=== PATIENT | female | born 1985 | race Caucasian/White ===

== ENCOUNTER 2016-12-24 11:58 | Emergency (ER) | payer MEDICARE ==
[~2016-12-24] VITALS: Ht 165.1 cm; Wt 48.3 kg
[2016-12-24 12:16] VITALS: BP 150/81
--- NOTE | 2016-12-24 12:31 | NUR ---
Patient ambulated to bed 04.
--- NOTE | 2016-12-24 13:05 | NUR ---
PATIENT PRESENTS TO ED C/O PAIN TO LEFT SIDE OF HEAD, NOTED ABSCESS LEFT SIDE OF SCALP X 5 DAYS. LEFT EYE SWELLING X3 DAYS, DENIES INJURY. MEDICAL HX: DM. DENIES N/V/D; SKIN IS PINK/WARM/DRY; AAOX4 WITH EVEN AND STEADY GAIT; LUNGS CLEAR BL; HR EVEN AND REGULAR; PT DENIES ANY FEVER, CP, SOB, OR COUGH AT THIS TIME; PATIENT STATES PAIN OF 7/10 AT THIS TIME; VSS; PATIENT POSITIONED FOR COMFORT; HOB ELEVATED; BEDRAILS UP X2; BED DOWN. ER MD MADE AWARE OF PT STATUS.
--- NOTE | 2016-12-24 13:59 | NUR ---
Dr. Shelby evaluating patient at bedside.
[2016-12-24 14:28] VITALS: BP 145/72
--- NOTE | 2016-12-24 14:28 | NUR ---
Patient discharged with v/s stable. Written and verbal after care instructions given and explained. Patient alert, oriented and verbalized understanding of instructions. Ambulatory with steady gait. All questions addressed prior to discharge. ID band removed. Patient advised to follow up with PMD. Rx of KEFLEX. METFORMIN given. Patient educated on indication of medication including possible reaction and side effects. Opportunity to ask questions provided and answered.
== END 2016-12-24 14:28 | disposition home or self-care (01) ==
LOC: MED 11:58
DX: L02.811 Cutaneous abscess of head [any part, except face] (principal); L03.213 Periorbital cellulitis; E11.9 Type 2 diabetes mellitus without complications
CPT/HCPCS: 81025; 82948; 99283

== ENCOUNTER 2021-07-19 11:56 | Emergency (ER) | payer BC, MEDICARE ==
[~2021-07-19] VITALS: Ht 165.1 cm; Wt 50.8 kg
[2021-07-19 12:08] VITALS: BP 129/60
--- NOTE | 2021-07-19 12:19 | NUR ---
Patient ambulated to bed 9.
--- NOTE | 2021-07-19 12:30 | NUR ---
35 y/o Female BIB for c/o right eye pain after having fake eyelashes placed and now since removed. Denies chanegs in vision/TRAORE. Pt denies any trauma in eye. AOX4, able to make needs known. BANG Posadas aware of POC glucose level. PmHx: DM, HLD Allergies: Denies Home meds: Has DM meds, but is not taking them.
--- NOTE | 2021-07-19 12:33 | NUR ---
Dr. Posadas at bedside to exam patient.
[2021-07-19] MEDS ORDERED: FLUORESCEIN OPTH STRIP 1 MG ONE (12:44)
[2021-07-19] MEDS ORDERED: FLUORESCEIN OPTH STRIP 1 MG OP ONE (12:50)
[2021-07-19] MEDS ORDERED: DIPH25TA39 PO (13:07)
[2021-07-19 13:27] VITALS: BP 122/58
--- NOTE | 2021-07-19 13:29 | NUR ---
Patient discharged with v/s stable. Written and verbal after care instructions given and explained. Patient alert, oriented and verbalized understanding of instructions. Ambulatory with steady gait. All questions addressed prior to discharge. ID band removed. Patient advised to follow up with PMD. Rx of BENADRYL given. Patient educated on indication of medication including possible reaction and side effects. Opportunity to ask questions provided and answered.
== END 2021-07-19 13:27 | disposition home or self-care (01) ==
LOC: MED 11:56
DX: H10.9 Unspecified conjunctivitis (principal); J30.9 Allergic rhinitis, unspecified; E11.65 Type 2 diabetes mellitus with hyperglycemia
CPT/HCPCS: 82948; 99283